=== PATIENT | female | born 1930 | race Caucasian/White ===

== ENCOUNTER 2017-05-23 16:40 | Inpatient (IN) | payer MEDICARE, MEDICAID ==
[~2017-05-23] VITALS: Ht 165.1 cm; Wt 87.1 kg
[2017-05-23 18:24] LABS: BASOPHIL % 0.4 % (0-2); PLATELET COUNT 279 x10^3mcL (130-400); RED CELL DISTRIBUTION WIDTH 13.6 % (11.5-14.5)
[2017-05-23 18:26] LABS: CALCIUM 9.2 mg/dL (8.5-10.1); CARBON DIOXIDE 23.7 mmol/L (21-32); CHLORIDE SERUM 100 mmol/L (98-107); CREATININE SERUM 1.2 mg/dL (0.6-1.0); GLUCOSE SERUM 149 mg/dL (74-106); POTASSIUM SERUM 3.8 mmol/L (3.5-5.1); SODIUM SERUM 133 mmol/L (136-145)
[2017-05-23 18:31] LABS: ALBUMIN 3.8 g/dL (3.4-5.0); ALKALINE PHOSPHATASE 84 U/L (46-116); ALT/SGPT 21 U/L (14-59); AST/SGOT 18 U/L (15-37); BILIRUBIN TOTAL 0.5 mg/dL (0.20-1.00); TOTAL PROTEIN, SERUM 7.6 g/dL (6.4-8.2)
[2017-05-23] MEDS ORDERED: SIMVASTATIN20 M1 PO (21:59)
[2017-05-23] MEDS ORDERED: NEIGHBOR PO (22:00)
[2017-05-23] MEDS ORDERED: DIOVAN320 MG PO (22:00)
[2017-05-23] MEDS ORDERED: GLUCOPHAGE XR500 MG PO (22:00)
[2017-05-24 04:03] LABS: MAGNESIUM 1.7 mg/dL (1.8-2.4); PHOSPHOROUS 2.6 mg/dL (2.5-4.9)
[2017-05-24 04:14] VITALS: BP 128/59
[2017-05-24 04:14] LABS: FREE T4 1.42 ng/dL (0.76-1.46); FREE THYROXINE INDEX 3.7 ug/dL (1.4-4.5)
[2017-05-24 04:17] LABS: T3 TOTAL 1.07 ng/mL
[2017-05-24 05:22] VITALS: BP 128/59
[2017-05-24 05:59] LABS: microscopic required? NO
[2017-05-24 07:01] LABS: CALCIUM 8.5 mg/dL (8.5-10.1); CARBON DIOXIDE 25.2 mmol/L (21-32); CHLORIDE SERUM 107 mmol/L (98-107); CREATININE SERUM 1.2 mg/dL (0.6-1.0); GLUCOSE SERUM 178 mg/dL (74-106); POTASSIUM SERUM 4.1 mmol/L (3.5-5.1); SODIUM SERUM 138 mmol/L (136-145)
[2017-05-24 07:33] LABS: BASOPHIL % 0.1 % (0-2); PLATELET COUNT 246 x10^3mcL (130-400); RED CELL DISTRIBUTION WIDTH 14.5 % (11.5-14.5)
[2017-05-24 07:55] LABS: urine erythrocyte NEGATIVE (NEGATIVE)
[2017-05-24 08:40] VITALS: BP 137/57
[2017-05-24 12:14] VITALS: BP 131/54
[2017-05-24 17:08] VITALS: BP 109/58
[2017-05-24 20:50] VITALS: BP 131/55
[2017-05-25 05:19] VITALS: BP 146/61
[2017-05-25 06:23] LABS: CALCIUM 8.7 mg/dL (8.5-10.1); CARBON DIOXIDE 21.7 mmol/L (21-32); CHLORIDE SERUM 106 mmol/L (98-107); CREATININE SERUM 1.5 mg/dL (0.6-1.0); GLUCOSE SERUM 262 mg/dL (74-106); POTASSIUM SERUM 4.9 mmol/L (3.5-5.1); SODIUM SERUM 139 mmol/L (136-145)
[2017-05-25 06:40] LABS: BASOPHIL % 0.1 % (0-2); PLATELET COUNT 246 x10^3mcL (130-400); RED CELL DISTRIBUTION WIDTH 14.5 % (11.5-14.5)
[2017-05-25 09:02] VITALS: BP 148/70
[2017-05-25 13:22] VITALS: BP 124/49
[2017-05-25 18:00] VITALS: BP 148/62
[2017-05-25 21:20] VITALS: BP 114/63
[2017-05-26 06:03] VITALS: BP 111/61
[2017-05-26 10:27] VITALS: BP 123/87
[2017-05-26] MEDS ORDERED: AUG500 PO (17:31)
[2017-05-26] MEDS ORDERED: ASPIR 8181 MG PO (17:33)
[2017-05-26 18:06] VITALS: BP 144/60
[2017-05-26 18:08] VITALS: BP 102/78
[2017-05-26 18:16] VITALS: BP 102/78
== END 2017-05-26 19:20 | disposition home or self-care (01) | DRG 177 ==
LOC: ED 16:40 → MU 05-24 03:18 → DU 05-24 03:18 → MU 05-26 07:22
PROVIDERS: Emergency Medicine; ADMIT Family Medicine
DX: J69.0 Pneumonitis due to inhalation of food and vomit (principal); N17.0 Acute kidney failure with tubular necrosis; J96.00 Acute respiratory failure, unspecified whether with hypoxia or hypercapnia; E87.1 Hypo-osmolality and hyponatremia; D68.69 Other thrombophilia; E11.51 Type 2 diabetes mellitus with diabetic peripheral angiopathy without gangrene; E11.65 Type 2 diabetes mellitus with hyperglycemia; E78.5 Hyperlipidemia, unspecified; E66.9 Obesity, unspecified; I10 Essential (primary) hypertension; K21.9 Gastro-esophageal reflux disease without esophagitis; Z68.32 Body mass index [BMI] 32.0-32.9, adult; Z79.84 Long term (current) use of oral hypoglycemic drugs
CPT/HCPCS: 36600; 83880; 84439; 92610; J0456; J0696; J1815; J1956; J2405; J2765; J2920; J2930; J3490; J7030; J7050; J7620; Q0092